=== PATIENT | male | born 1945 | race Caucasian/White ===

== ENCOUNTER 2016-11-05 06:08 | Inpatient (IN) | payer MEDICARE, OTHER ==
[~2016-11-05 06:08] MED LIST: ASPIRIN EC81 MG PO; COD LIVER OIL1 EAC2 PO; CPAP; FLOMAX0.4 M1 PO; HYDROCHLOROTHIA50 M1 PO; LOPRESSOR50 M1 PO; MOBIC15 M2 PO; NORVASC5 M2 PO; PRINIVIL10 M1 PO; SYNTHROID75 MC1 PO
[2016-11-05 06:51] LABS: PROTHROMBIN TIME 11.4 SECONDS (9.0-13.6)
[2016-11-06 05:56] LABS: EOS % 0.1 % (0-7); HCT-HEMATOCRIT 36.6 % (36.0-53.5); HGB-HEMOGLOBIN 12.3 gm/dl (13.5-17.0); IMMATURE GRANULOCYTES ABSOLUTE 0.03 tho/cmm (0-0.03); IMMATURE GRANULOCYTES PERCENT 0.3 % (0-0.3); LYMPH % 10.3 % (20-45); LYMPH ABSOLUTE COUNT 1.1 tho/cmm (0.8-4.5); MCH (MEAN CORPUSCULAR HGB) 29.5 pg (28.0-32.0); MCHC MEAN CORPUSCULAR HGB CONC 33.6 % (32.0-36.0); MCV (MEAN CELL VOLUME) 87.8 fl (82.0-96.0); MEAN PLATELET VOLUME 11.1 cmc (9.4-12.4); MONO % 6.5 % (0-12); MONOCYTE ABSOLUTE COUNT 0.7 tho/cmm (0.0-1.2); NEUTROPHIL ABSOLUTE COUNT 8.8 tho/cmm (1.6-8.0); NEUTROPHIL-AUTOMATED 8.8 tho/cmm (1.6-8.0); NEUTROPHILS % 82.8 % (40-80); PLATELET COUNT 127 tho/cmm (150-450); RED BLOOD COUNT 4.17 mil/cmm (4.40-5.70); RED CELL DISTRIBUTION WIDTH 13.2 % (12.4-16.4); WHITE BLOOD COUNT 10.6 tho/cmm (4.0-10.0)
[2016-11-07] MEDS ORDERED: ASPIRIN81 M1 PO (10:04)
[2016-11-07] MEDS ORDERED: ULTRAM50 M1 PO ×2 (10:05→10:11)
[2016-11-07] MEDS ORDERED: MOBIC7.5 M2 PO (10:06)
[2016-11-07] MEDS ORDERED: TYLENOL325 M2 PO (10:09)
[2016-11-07] MEDS ORDERED: ROXICODONE5 M2 PO (10:15)
[2016-11-07] MEDS ORDERED: SENOKOT-S TABL1 EACH PO (10:18)
== END 2016-11-07 14:29 | DRG 470 ==
LOC: SHSB 06:08 → ORE 08:19 → PACU 10:24 → 5EA 11:48
PROVIDERS: ADMIT Orthopaedic Surgery Foot and Ankle Surgery
PROC: 0SRD0J9 Replacement of Left Knee Joint with Synthetic Substitute, Cemented, Open Approach (ICD-10-PCS; principal; 2016-11-05)
PROC: 5A09357 Assistance with Respiratory Ventilation, Less than 24 Consecutive Hours, Continuous Positive Airway Pressure (ICD-10-PCS; 2016-11-05)
DX: M17.12 Unilateral primary osteoarthritis, left knee (principal); D69.6 Thrombocytopenia, unspecified; I48.0 Paroxysmal atrial fibrillation; Z68.41 Body mass index [BMI] 40.0-44.9, adult; Z79.82 Long term (current) use of aspirin; E78.5 Hyperlipidemia, unspecified; E03.9 Hypothyroidism, unspecified; I10 Essential (primary) hypertension; Z98.890 Other specified postprocedural states; E66.9 Obesity, unspecified; I95.81 Postprocedural hypotension; R60.0 Localized edema; D72.829 Elevated white blood cell count, unspecified
CPT/HCPCS: C1713; C1776; J0171; J0690; J2270; J2795